=== PATIENT | female | born 1975 | race African-American/Black ===

== ENCOUNTER → 2017-05-21 | Day surgery (SDC) | payer BC ==
[2017-05-18 12:52] LABS: BASOPHILS % 0.5 % (0.0-1.0); EOSINOPHILS # (AUTO) 0.1 (0.0-0.4); EOSINOPHILS % 1.4 % (0.0-6.0); HEMATOCRIT 34.5 % (34.2-44.1); HEMOGLOBIN 11.1 g/dL (12.0-16.0); LYMPHOCYTES # (AUTO) 2.8 (1.0-3.2); LYMPHOCYTES % 33.7 % (18.0-39.1); MEAN CORPUSCULAR HEMOGLOBIN 28.7 pg (28-32); MEAN CORPUSCULAR HGB CONC 32.2 g/dL (31-35); MEAN CORPUSCULAR VOLUME 89.1 fL (81-99); MONOCYTES # (AUTO) 0.5 (0.2-0.8); NEUTROPHILS # (AUTO) 4.9 (2.1-6.9); NEUTROPHILS % 58.2 % (38.7-80.0); PLATELET COUNT 363 x10e3/uL (140-360); RED BLOOD COUNT 3.87 x10e6/uL (3.6-5.1); RED CELL DISTRIBUTION WIDTH 12.7 % (11.7-14.4)
[~2017-05-21] MED LIST: DEXAMETHASONE SOD PHOS INJ 4 MG/ML VIAL ONE; FENTANYL CITRATE/PF 100MCG/2 ML INJ ONE; HUMIRA40 MG/0.1; KETOROLAC TROMETHAMINE 30 MG/ML VIAL ONE; LIDOCAINE HCL 2% LOCAL INJ 5 ML SDV VIAL INJ ONE; METOCLOPRAMIDE HCL 10 MG/2ML VIAL ONE; MIDAZOLAM HCL 2 MG/2 ML VIAL ONE; MORPHINE SULFATE 2 MG/ML SYR ONE; NAPROXEN250 MG PO; ONDANSETRON HCL INJ 2 MG/ML VIAL ONE; PROPOFOL IV EMULSION 10 MG/ML 20 ML VIAL ONE; SEVOFLURANE INHAL SOLN 250 ML PEN BTL ONE; VASOPRESSIN INJ 20 UNIT/ML VIAL ONE; iron
--- OUTSIDE RECORDS SUMMARY | 2017-05-21 08:41 | XMS REPORT | Summary of Care ---
Author Author Bernie Antunez LVN Organization Unknown Address [facility] Phone Unavailable Care Team Providers Care [employer] Maintainer Name Role Phone LES LEY M.D. 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 * Refills: 0 * Start : 04-Aug-2014 Active Humira Pen 40 MG/0.8ML Subcutaneous Pen-injector Kit INJECT 40MG SUBCUTANEOUSLY EVERY OTHER WEEK * Quantity: 1 Refills: 5 LES LEY M.D. * Start : 24-Jul-2016 Active Allergies and Adverse Reactions Name Dates Details doxycycline (Allergy) Status: Active Robitussin (Allergy) Status: Active Past Medical History Name Dates Details History of Eclampsia (642.60, O15.9) Status: Resolved History of Trochanteric bursitis (726.5, M70.60) Status: Resolved Procedures Procedure Dates Details History of Cholecystectomy Completed Immunization Name Dates Details Immunizations not documented Family History Name Dates Details Family history of hypertension (V17.49, Z82.49) Status: Active Family history of hyperlipidemia (V18.19, Z83.49) Status: Active Social History Name Dates Details - Status: Name Dates Details Never smoker Vital Signs Date Test Result Details No Known Vitals to report Results Date Description Value Details Results not documented Plan of Care Name Dates Details Planned Observations Planned Goals not documented Planned Encounters Appointment; LES LEY M.D. On: 21-Jun-2017 9:00 Instructions Name Dates Details Instructions not documented Encounters Appointment; GERARDO CORADO M.D. Encounter Diagnosis: Problem not documented On: 12-May-2015 9:00 Appointment; LES LEY M.D. Encounter Diagnosis: Problem not documented On: 09-Nov-2015 10:00 Appointment; GERARDO CORADO M.D. Encounter Diagnosis: Problem not documented On: 16-Nov-2015 10:00 Appointment; LES LEY M.D. Encounter Diagnosis: Problem not documented On: 08-Feb-2016 10:30 Appointment; LES LEY M.D. Encounter Diagnosis: Problem not documented On: 30-May-2016 16:00 Appointment; LES LEY M.D. Encounter Diagnosis: Problem not documented On: 18-Oct-2016 9:30 Appointment; LES LEY M.D. Encounter Diagnosis: Problem not documented On: 22-Mar-2017 9:30
--- NOTE | 2017-05-21 14:02 | Operative Report ---
DATE OF PROCEDURE: May 21, 2017 PREOPERATIVE DIAGNOSIS 1. Abnormal uterine bleeding. 2. Fibroid uterus. POSTOPERATIVE DIAGNOSIS 1. Abnormal uterine bleeding. 2. Fibroid uterus. 3. Endometrial polyps. TITLE OF PROCEDURE: Hysteroscopic polypectomy via Symphion procedure. ANESTHESIA: General with Dr. Capellan. INDICATION FOR THE OPERATION: The patient is a 41-year-old 2, para 2, with last menstrual period May 15, 2017, on no contraception, who presents with heavy menstrual bleeding and pain and was diagnosed with fibroids and mild anemia. Her H\T\H was 11 and 33. Patient reports fatigue. Endometrial biopsy showed benign secretory endometrium. The patient does desire to conceive. She was offered laparoscopically assisted vaginal hysterectomy, hysteroscopic myomectomy and endometrial ablation, but she chooses the myomectomy due to desiring to retain her fertility. FINDINGS AT SURGERY: There was a large cavity. No fibroids were seen. There were multiple polyps, which were removed with the Symphion instrument. An extensive search was made for any fibroids. There were no fibroids noted impinging on the cavity. Once all the polyps were removed, the procedure was terminated. PROCEDURE: The patient was taken to the operating room and placed on the table in the supine position. General anesthesia was administered. The patient was then placed in the lithotomy position. The perineum was prepared and draped in the usual sterile manner. Pelvic exam revealed an 8 to 10 week size anteverted anteflexed uterus, nodular with no adnexal masses. The bladder was drained by in-and-out catheterization. A weighted speculum was placed at the posterior vaginal wall, and then with the aid of a right-angle retractor, the anterior lip of the cervix was grasped with a single-tooth tenaculum. Then the cervix was dilated up to number 21, and then the hysteroscope was placed, and the endometrial cavity was evaluated. There were multiple large polyps noted. There was no sign of any irregularities in the cavity consistent with fibroids. Both ostia were visualized, and the decision was made to proceed with polypectomy using the Symphion instrument. Most of the polyps were in the right anterior aspect of the cavity, and these were excised using the Symphion instrument. There were also a few polyps on the posterior wall, and these were excised as well with the Symphion instrument. We probed with the Symphion instrument to see if there were any hard areas consistent with fibroid impinging on the cavity. None were noted, and an extensive search was made. Both ostia were again visualized, and then at this point with no polyps noted after they had all been excised, the procedure was terminated. There were no complications noted. Estimated blood loss was 5 mL. Fluid balance was +300 mL. The patient tolerated the procedure well and was transferred from the operating room to the recovery room in good condition. Job#: [id number]
== END | disposition home or self-care (01) ==
LOC: OR 08:38
PROVIDERS: ATTEND Obstetrics & Gynecology
DX: N84.0 Polyp of corpus uteri (principal); D25.9 Leiomyoma of uterus, unspecified; N71.1 Chronic inflammatory disease of uterus; D64.9 Anemia, unspecified; F31.9 Bipolar disorder, unspecified; K58.9 Irritable bowel syndrome, unspecified; L40.50 Arthropathic psoriasis, unspecified; Z01.812 Encounter for preprocedural laboratory examination
CPT/HCPCS: 36415; 58558; 81025; 85025; 86850; 86900; 88305; J1100; J1885; J2001; J2250; J2270; J2405; J2765

== ENCOUNTER → 2020-08-20 | Day surgery (SDC) | payer BC ==
[2020-08-18 10:02] LABS: BASOPHILS % 0.7 % (0.0-1.0); EOSINOPHILS # (AUTO) 0.2 (0.0-0.4); EOSINOPHILS % 2.9 % (0.0-6.0); HEMATOCRIT 35.2 % (34.2-44.1); HEMOGLOBIN 10.9 g/dL (12.0-16.0); LYMPHOCYTES # (AUTO) 1.6 (1.0-3.2); LYMPHOCYTES % 28.5 % (18.0-39.1); MEAN CORPUSCULAR HEMOGLOBIN 28.1 pg (28-32); MEAN CORPUSCULAR VOLUME 90.7 fL (81-99); MONOCYTES # (AUTO) 0.4 (0.2-0.8); MONOCYTES % 6.9 % (4.4-11.3); NEUTROPHILS # (AUTO) 3.3 (2.1-6.9); NEUTROPHILS % 60.8 % (38.7-80.0); PLATELET COUNT 387 x10e3/uL (140-360); RED BLOOD COUNT 3.88 x10e6/uL (3.6-5.1); RED CELL DISTRIBUTION WIDTH 13.2 % (11.7-14.4)
[2020-08-18 10:26] LABS: ALANINE AMINOTRANSFERASE 12 IU/L (0-55); ALBUMIN 3.8 g/dL (3.5-5.0); ALBUMIN/GLOBULIN RATIO 1.2 (0.8-2.0); ALKALINE PHOSPHATASE 97 IU/L (40-150); ANION GAP 10.7 mmol/L (8-16); BLOOD UREA NITROGEN 10 mg/dL (7-26); BUN/CREATININE RATIO 13 (6-25); CALCIUM 8.3 mg/dL (8.4-10.2); CARBON DIOXIDE 27 mmol/L (22-29); CHLORIDE 108 mmol/L (98-107); CREATININE, SERUM 0.78 mg/dL (0.57-1.11); EST GLOMERULAR FILTRATION RATE > 60 ML/MIN (60-); GLUCOSE 90 mg/dL (74-118); POTASSIUM 3.7 mmol/L (3.5-5.1); SODIUM 142 mmol/L (136-145)
[2020-08-18 10:28] LABS: CLARITY,URINE CLEAR (CLEAR); COLOR,URINE YELLOW (YELLOW); LEUKOCYTE ESTERASE ,URINE NEGATIVE (NEGATIVE); NITRITE,URINE NEGATIVE (NEGATIVE); PROTEIN,URINE DIPSTICK TRACE (NEGATIVE)
[2020-08-18 10:29] LABS: KETONES,URINE TRACE (NEGATIVE); URINE UROBILINOGEN 2 mg/dL (0.2 - 1)
[~2020-08-20] MED LIST changes: +AMITRIPTYLINE150 MG PO; +AMLODIPINE BESY10 MG PO; +BUPIVACAINE HCL 0.5% INJ 30 ML VIAL INJ ONE; +COLACE100 MG PO; -METOCLOPRAMIDE HCL 10 MG/2ML VIAL ONE; -MORPHINE SULFATE 2 MG/ML SYR ONE; -ONDANSETRON HCL INJ 2 MG/ML VIAL ONE; +ONDANSETRON HCL INJ 2MG/ML 2ML 2 MG/ML VIAL ONE; +POVIDONE IODINE 0.05% 0.05 % ML PO ONE; +SILVER NITRATE SWABS ONE; +WELLBUTRIN XL300 MG PO
[2020-08-20 15:13] VITALS: BP 128/88
== END | disposition home or self-care (01) ==
LOC: OR 10:24
PROVIDERS: ATTEND Obstetrics & Gynecology
DX: N84.0 Polyp of corpus uteri (principal); N92.0 Excessive and frequent menstruation with regular cycle; D64.9 Anemia, unspecified; D25.9 Leiomyoma of uterus, unspecified; Z88.8 Allergy status to other drugs, medicaments and biological substances; Z01.810 Encounter for preprocedural cardiovascular examination; Z01.812 Encounter for preprocedural laboratory examination; Z20.822 Contact with and (suspected) exposure to COVID-19; G40.909 Epilepsy, unspecified, not intractable, without status epilepticus; I10 Essential (primary) hypertension
CPT/HCPCS: 36415; 58563; 80053; 81003; 81025; 84702; 85025; 88305; 93005; C1758; J0690; J1100; J1885; J2001; J2250; J2405; J2704; J3010; U0002